=== PATIENT | male | born 1995 | race Asian ===

== ENCOUNTER 2017-01-19 21:39 | Emergency (ER) | payer SELFPAY ==
[~2017-01-19] VITALS: Ht 177.8 cm; Wt 91.0 kg
[2017-01-19 23:47] LABS: BASOPHILS % 0.8 % (0.0-2.0); EOSINOPHILS % 0.6 % (0.0-5.0); HEMATOCRIT. 46.6 % (42.0-52.0); LYMPHOCYTES % 15.5 % (20.0-50.0); MEAN CORPUSCULAR HEMOGLOBIN 28.5 pg (28.0-32.0); MEAN CORPUSCULAR VOLUME 83.1 fL (80.0-94.0); MEAN PLATELET VOLUME 9.5 fl (7.4-10.4); MONOCYTES % 6.1 % (2.0-8.0); PLATELET 262 x1000/uL (130-400); RED CELL DISTRIBUTION WIDTH 13.5 % (11.6-14.6)
[2017-01-19 23:53] LABS: CHLORIDE 104 mEq/L (98-107)
[2017-01-19 23:58] LABS: CARBON DIOXIDE 28 mEq/L (21-32); ETHANOL BLOOD < 10 mg/dL
[2017-01-20 00:30] LABS: CLARITY URINE CLEAR (CLEAR); COLOR URINE YELLOW (YELLOW); GLUCOSE URINE NEGATIVE (NEGATIVE); KETONES URINE TRACE (NEGATIVE); LEUKOCYTE ESTERASE URINE NEGATIVE (NEGATIVE); NITRITE URINE NEGATIVE (NEGATIVE); OCCULT BLOOD URINE NEGATIVE (NEGATIVE); PROTEIN URINE NEGATIVE (NEGATIVE); SPECIFIC GRAVITY URINE 1.031 (1.005-1.030)
[2017-01-20] MEDS ORDERED: DIPHENHYDRAMINE 50MG/ML VIAL IM ONE (00:45)
[2017-01-20] MEDS ORDERED: LORAZEPAM 2MG/ML CPJ IM ONE ×2 (00:45→02:45)
[2017-01-20 00:49] LABS: *AMPHETAMINES SCREEN URINE NEGATIVE (NEGATIVE); *BARBITURATES SCREEN URINE NEGATIVE (NEGATIVE); *BENZODIAZEPINES SCREEN URINE NEGATIVE (NEGATIVE); *COCAINE SCREEN URINE NEGATIVE (NEGATIVE); CANNABINOID URINE SCREEN NEGATIVE (NEGATIVE); METHADONE URINE SCREEN NEGATIVE (NEGATIVE); OPIATES URINE SCREEN NEGATIVE (NEGATIVE); PHENCYCLIDINE URINE SCREEN NEGATIVE (NEGATIVE)
[2017-01-20] MEDS ORDERED: LORAZEPAM 2MG/ML CPJ IV ONE ×3 (02:45→22:00)
[2017-01-20] MEDS ORDERED: OLANZAPINE 10 MG/VIAL IM ONE ×2 (09:15→21:45)
[2017-01-20] MEDS ORDERED: LORAZEPAM 2MG/ML CPJ IM PRN (09:15)
[2017-01-20] MEDS ORDERED: OLANZAPINE 10MG TABLET ODT PO ONE (22:45)
[2017-01-21] MEDS ORDERED: OLANZAPINE 10 MG/VIAL IM SCH (04:45)
[2017-01-21] MEDS ORDERED: DIVALPROEX SODIUM 250MG ER TABLET PO ONE (06:30)
[2017-01-21] MEDS ORDERED: OLANZAPINE 10 MG/VIAL IM ONE (18:45)
[2017-01-21] MEDS ORDERED: OLANZAPINE 10MG TABLET PO SCH (20:15)
[2017-01-22] MEDS ORDERED: OLANZAPINE 10 MG/VIAL IM ONE (07:00)
[2017-01-22] MEDS ORDERED: DIPHENHYDRAMINE 50MG/ML VIAL IM ONE (09:30)
[2017-01-22] MEDS ORDERED: LORAZEPAM 2MG/ML CPJ IM ONE (09:45)
[2017-01-22 10:45] VITALS: BP 137/83
[2017-01-22] MEDS ORDERED: LORAZEPAM 1MG TABLET PO ONE (12:15)
== END 2017-01-22 13:16 | disposition home or self-care (01) ==
LOC: ER 21:39
DX: R45.851 Suicidal ideations (principal); F31.9 Bipolar disorder, unspecified; F41.9 Anxiety disorder, unspecified; F20.9 Schizophrenia, unspecified; W26.0XXA Contact with knife, initial encounter
CPT/HCPCS: 36415; 80048; 80165; 80305; 80307; 80329; 81003; 85025; 96372; 96374; 96376; 99284; G0482; J1200; J2060; J3490; Z7610